=== PATIENT | female | born 1985 | race Caucasian/White ===

== ENCOUNTER 2017-04-02 10:04 | Emergency (ER) | payer MEDICAID ==
[~2017-04-02] VITALS: Ht 157.5 cm; Wt 68.0 kg
[2017-04-02] MEDS ORDERED: SODIUM CHLORIDE 0.9% 1,000 ML IVB ONE (10:25)
[2017-04-02] MEDS ORDERED: THIAMINE HCL 100 MG/ML 2ML VIAL IV ONE (10:30)
[2017-04-02] MEDS ORDERED: chlordiazePOXIDE HCL 25 MG CAP PO ONE (11:00)
[2017-04-02] MEDS ORDERED: LORazepam 2MG/ML-1ML VIAL IV ONE (11:00)
[2017-04-02] MEDS ORDERED: MORPHINE SULF INJ 2 MG/ML SYRINGE 1ML IV ONE (12:00)
[2017-04-02 12:30] VITALS: BP 128/77
[2017-04-02] MEDS ORDERED: SODIUM CHLORIDE 0.9% 1,000 ML IV ONE (12:30)
[2017-04-06] MEDS ORDERED: LORA-654 PO (13:45)
[2017-04-06] MEDS ORDERED: GAB100C PO (13:45)
== END 2017-04-02 13:10 | disposition home or self-care (01) ==
LOC: ER 10:04
DX: F10.129 Alcohol abuse with intoxication, unspecified (principal); R41.82 Altered mental status, unspecified; Z88.0 Allergy status to penicillin
CPT/HCPCS: 36415; 80320; 96361; 96374; 96375; 99284; J2060; J2270; J3411; J7030

== ENCOUNTER 2017-05-29 20:41 | Emergency (ER) | payer MEDICAID ==
[~2017-05-29] VITALS: Ht 154.9 cm; Wt 65.8 kg
[~2017-05-29 20:41] MED LIST: GAB100C PO; LORA-654 PO
[2017-05-29 21:22] LABS: Basophils # (auto) 0 uL; Basophils % (auto) 0.5 % (0.0-2.0); Eosinophils # (auto) 0 uL; Eosinophils % (auto) 0.7 % (0.0-7.0); Hematocrit 40.4 % (36.0-46.0); Lymphocytes # (auto) 0.8 uL; Lymphocytes % (auto) 13.5 % (10.0-50.0); Mean Corpuscular Hemoglobin 29.3 pg (28.0-32.0); Mean Corpuscular Hgb Conc. 32.2 g/dL (32.0-36.0); Mean Corpuscular Volume 91.1 fL (80.0-100.0); Monocytes # (auto) 0.5 uL; Monocytes % (auto) 7.5 % (0.0-12.0); Neutrophils # (auto) 4.8 uL; Neutrophils % (auto) 77.8 % (37.0-80.0); Platelet Count (auto) 255 10^3/uL (140-450); Red Blood Cells 4.44 10^6/uL (4.0-5.20); Red Cell Distribution Width 16.8 % (11.8-14.3); White Blood Cell 6.2 10^3/uL (4.4-10.8)
[2017-05-29 21:45] LABS: Acetaminophen < 2.0 ug/mL (10-30); Albumin 3.7 g/dL (3.4-5.0); Calcium 7.9 mg/dL (8.5-10.1); Potassium 4.1 mmol/L (3.5-5.1); Salicylate 5.1 mg/dL (2.8-20.0)
[2017-05-29 21:47] LABS: BUN/Creatinine Ratio 9.1
[2017-05-29 21:50] LABS: Bilirubin, Total 0.1 mg/dL (0.2-1.0)
[2017-05-30 10:05] LABS: Urine Blood 2+ /uL (Negative); Urine Specific Gravity 1.024 (1.001-1.035)
[2017-05-30 10:08] LABS: Alcohol, Urine < 3.0 mg/dL (0-5); Amphetamine Screen, Urine NEGATIVE (NEGATIVE); Barbiturate Scree,Urine NEGATIVE (NEGATIVE); Benzodiazephine Screen, Urine NEGATIVE (NEGATIVE); Cannabinoid Screen, Urine POSITIVE (NEGATIVE); Cocaine Screen, Urine NEGATIVE (NEGATIVE); Opiate Scree,Urine NEGATIVE (NEGATIVE); Phencyclidine Screen, Urine NEGATIVE (NEGATIVE)
[2017-05-30 10:15] LABS: Urine Bacteria MODERATE /hpf (None Seen); Urine WBC 2 /hpf (0 - 5)
[2017-05-30 10:38] VITALS: BP 107/63
== END 2017-05-30 11:08 | disposition home or self-care (01) ==
LOC: ER 20:41
DX: J40 Bronchitis, not specified as acute or chronic (principal); N28.9 Disorder of kidney and ureter, unspecified; N39.0 Urinary tract infection, site not specified; F12.10 Cannabis abuse, uncomplicated; F10.10 Alcohol abuse, uncomplicated; R41.82 Altered mental status, unspecified; E27.40 Unspecified adrenocortical insufficiency; Z88.0 Allergy status to penicillin
CPT/HCPCS: 36415; 80053; 80307; 80320; 80329; 81001; 85025; 93005

== ENCOUNTER 2017-11-02 18:52 | Emergency (ER) | payer MEDICAID ==
[~2017-11-02] VITALS: Ht 154.9 cm; Wt 63.5 kg
[2017-11-02 19:38] VITALS: BP 113/71
== END 2017-11-02 23:56 | disposition left against medical advice (07) ==
LOC: ER 18:52
DX: R51 Headache (principal); Z53.21 Procedure and treatment not carried out due to patient leaving prior to being seen by health care provider; Y08.89XA Assault by other specified means, initial encounter; Y93.89 Activity, other specified; Y99.8 Other external cause status; Y92.89 Other specified places as the place of occurrence of the external cause